=== PATIENT | female | born 1980 | race Asian ===

== ENCOUNTER 2022-04-22 10:54 | Observation (INO) | payer OTHER, SELFPAY ==
--- NOTE | 2022-04-22 11:23 | DI.US.S_ITS ---
PROCEDURE: US OB BIOPHYSICAL PROFILE INDICATIONS: Abdominal pain OUTSIDE/PRIOR DATING DATA: Last menstrual period (LMP): 09/07/2021. LMP-based estimated date of delivery (JULIANN): 06/07/2022. First dating scan (date and location): Not available. Estimated date of delivery (JULIANN) from first dating scan: N.A. TECHNIQUE: Real-time scanning was performed of the fetus, with image documentation and biometric measurements. Biophysical profile was also obtained. Endovaginal scanning: Performed. COMPARISON: None. FINDINGS: General: A single living intrauterine gestation is present. Presentation: Vertex. Placenta: Placental position is left fundal , without previa. Amniotic fluid index: 13.8 cm, normal range is 5-24 cm. Single deepest vertical pocket is 6.8 cm. heart rate: 141 beats per minute. Maternal cervical canal: 3.7 cm long. Normal lower limit is 2.5 cm. biometrics: Not performed. Clinical datin weeks 3 days Biophysical profile: Total point: 8 Tone: 2 points. Movement: 2 points. Respiration: 2 points. Largest pocket of fluid: 2 points. IMPRESSION: 1. A single living intrauterine gestation is present. 2. Normal biophysical profile. 3. Placenta is fundal without previa. No findings to suggest placental abruption. 4. CODEY 13.8 cm. We strive to produce accurate, complete, and clear reports of imaging services. To assist us in improving patient care, this report was composed using standard report templates and voice recognition software. Therefore, it may contain abnormal punctuation, insertions and/or omissions. Occasional wrong-word or sound-alike substitutions may occur. Though we review the report and make efforts to correct it, we do recommend that the report be read carefully in proper context to recognize any text inaccuracies. Dictated by: Latricia Bello M.D. on 04/22/2022 at 13:37 Approved by: Latricia Bello M.D. on 04/22/2022 at 13:43
[2022-04-22 12:01] LABS: Appearance Urine UA CLEAR; Bilirubin Urine UA NEGATIVE (NEGATIVE); Color Urine UA YELLOW; Glucose Urine UA TRACE g/dL (Negative); Ketones Urine UA NEGATIVE (NEGATIVE); Leukocyte Esterase Urine UA 1+ (NEGATIVE); Nitrite Urine UA NEGATIVE (Negative); Occult Blood Urine UA NEGATIVE (Negative); Protein Urine UA NEGATIVE (Negative); Urobilinogen Urine UA 0.2 E.U./dL (0.2)
[2022-04-22 12:05] LABS: Bacteria Urine None Seen; Culture Indicated Urine Cult Not Indicated; RBC Urine None Seen (0-5/HPF); Squamous Epithelial Cell Urine 5-10 /HPF (0-5/HPF); WBC Urine 1-5/HPF (0-5/HPF)
--- NOTE | 2022-04-22 13:42 | P.TNLD_ITS ---
Visit Information Visit Information Date of evaluation: 04/22/22 Primary OB Provider: Shabbir Buchanan Reason for Evaluation: Yes other Comments/Additional reasons for admission: Patient is a 41-year-old , JULIANN 06/14/[birth year]22 presenting at 32+ 3 weeks gestational age with some sharp left-sided lower abdominal pain. Patient received initial care and a what you at [facility] but has not been seen since February 16, 2022 due to PCS orders to [facility] to [facility] and a two month vacation to the [facility]. She is awaiting referral to [facility] for the balance of her care and delivery by repeat cesaranSashae presents today with a 24 hr. history of occasionally sharp and intense LLQ pain radiating down into the left groin. GI and ROS otherwise negative. No records available for review but patient has had two prior deliveries via . [facility] Medical History (Updated 04/29/22 @ 19:19 by Shante Márquez) Chicken pox (~1987) Headache (~1997) Migraine with aura Migraines (~1997) Surgical History (Updated 04/29/22 @ 19:19 by Shante Márquez) Anesthesia H/O section (~2015) Family History (Updated 04/30/22 @ 09:06 by Eufemia Landers RN) Grandfather Stroke Myocardial infarction Social History marital status: Exam [facility]ENCA Head: normal to inspection, normocephalic and atraumatic Eyes General: appearance normal, both eyes and all related structures Resp Effort & Inspection: normal respiratory effort and able to speak in complete sentences Auscultation: clear to auscultation bilaterally Cardio Rate: regular rate Rhythm: regular rhythm Heart Sounds: S1 normal, S2 normal and no murmurs GI Inspection: normal to inspection Palpation: soft and no hepatosplenomegaly Uterus Location (Fundal Height): 32 Other: Mild tenderness to direct palpation of left cornua and left lateral uterus. Fundus is soft and NT with very mild tightening corresponding to irritability noted on external monitoring. Extrem Right lower extremity: normal to inspection Objective Imaging OB Ultrasound: Radiologist's impression: COMPARISON:? None. ? FINDINGS:? ? General:? A single living intrauterine gestation is present.? Presentation:? Vertex.? Placenta:? Placental position is left fundal , without previa. Amniotic fluid index:? 13.8 cm, normal range is 5-24 cm.? Single deepest vertical pocket is 6.8 cm. heart rate:? 141 beats per minute.? Maternal cervical canal:? 3.7 cm long.? Normal lower limit is 2.5 cm.? ? biometrics:? Not performed. Clinical dating:? 32 weeks 3 days ? Biophysical profile:? Total point:? 8 Tone:? 2 points. Movement:? 2 points.? Respiration:? 2 points.? Largest pocket of fluid:? 2 points.? ? IMPRESSION:? ? 1. A single living intrauterine gestation is present. 2. Normal biophysical profile. 3. Placenta is fundal without previa.? No findings to suggest placental abruption. 4. CODEY 13.8 cm. Labs Labs: Laboratory Results - last 24 hr 04/22/22 11:24 Urine Color Yellow Urine Appearance Clear Urine pH 7.0 Ur Specific [place] 1.010 Urine Protein Negative Urine Glucose (UA) Trace H Urine Ketones Negative Urine Occult Blood Negative Urine Nitrate Negative Urine Bilirubin Negative Urine Urobilinogen 0.2 Ur Leukocyte Esterase 1+ H Urine RBC None seen Urine WBC 1-5/hpf Ur Squamous Epith Cells 5-10 /hpf H Urine Bacteria None seen Ur Culture Indicated? Cult not indicated Evaluation Evaluation Baseline heart rate: 130 Variability: Moderate (11-25) monitor accelerations: Present Monitor Decelerations: Absent Contraction Frequency (minutes): 10 Uterine Contraction Intensity: Mild Category of Tracing: Reactive Status: Category l Diagnosis, Plan/Disposition Final Diagnosis (1) : Status: Acute (2) History of delivery, currently : Status: Acute (3) LLQ discomfort: Status: Acute Plan/Disposition Plan: Patient will be fast-tracked for an initial OB visit 04/23/2022 with me at 11:30 AM. PTL precautions reviewed. Recommend decreased activity and increased hydration despite the fact that she and her are currently in the process of moving to [facility] from [place]. OB Disposition: home
== END 2022-04-22 13:39 | disposition home or self-care (01) ==
PROVIDERS: Admitting Provider Obstetrics & Gynecology; Referring Provider Obstetrics & Gynecology; Visit Provider Obstetrics & Gynecology
DX: O26.893 Other specified pregnancy related conditions, third trimester (principal); O34.219 Maternal care for unspecified type scar from previous cesarean delivery; R10.32 Left lower quadrant pain; Z3A.32 32 weeks gestation of pregnancy
CPT/HCPCS: 59025; 59050; 76817; 76819; 81001; G0378; G0379

== ENCOUNTER → 2022-04-25 10:01 | Outpatient (CLI) | payer OTHER, SELFPAY ==
[2022-04-25 14:04] LABS: Hematocrit 33.2 % (36-46); Hemoglobin 11.5 g/dL (12.0-16.0)
[2022-04-26 15:29] LABS: GTT (PREG) 1 Hour PP 50gm Dose 123 mg/dL (76-139)
== END ==
PROVIDERS: Referring Provider Obstetrics & Gynecology; Visit Provider Obstetrics & Gynecology
DX: Z34.83 Encounter for supervision of other normal pregnancy, third trimester (principal); Z3A.32 32 weeks gestation of pregnancy
CPT/HCPCS: 82950; 85014; 85018

== ENCOUNTER → 2022-05-22 17:00 | Outpatient (CLI) | payer OTHER, SELFPAY ==
[2022-05-23 14:23] LABS: Strep Grp B PCR NEG for Grp B Strep
== END ==
PROVIDERS: Visit Provider Obstetrics & Gynecology
DX: Z34.93 Encounter for supervision of normal pregnancy, unspecified, third trimester (principal); Z3A.36 36 weeks gestation of pregnancy
CPT/HCPCS: 87653

== ENCOUNTER 2022-06-05 09:38 | Inpatient (IN) | payer OTHER, SELFPAY ==
--- NOTE | 2022-06-05 | PATH_ITS ---
[facility] Accession Number: [id number] . 01 Material submitted: . fallopian tube - BILATERAL FALLOPIAN TUBES . 01 Diagnosis: Bilateral Fallopian Tubes, Tubal Ligation: Fallopian tubes x2 with benign paratubal cysts (up to 1 mm - 7 mm in greatest dimension); complete cross-sections; negative for atypia or malignancy. MRV 06/08/2022 1637 Local . 01 Electronically signed: . Jessica Sanchez MD, Pathologist NPI- [id number] . 01 Gross description: . Received in formalin, labeled with the patient's name and bilateral fallopian tubes, and consists of two unoriented fimbriated fallopian tubes measuring 11.6 x 0.9 cm and 8.1 x 0.8 cm, respectively. The longer fallopian tube has smooth, congested serosa with multiple small cystic structures measuring up to 0.1 cm in greatest dimension. Serial sectioning reveals a congested stellate lumen. The shorter fallopian tube has congested smooth serosa with a cystic structure near the fimbriated end measuring 0.7 cm in greatest dimension and filled with pascual serous fluid. Serial sectioning reveals a congested stellate lumen. Sections are submitted in include entire fimbriae and sales representative uniforms cross sections as follows: A1: Longer fallopian tube. A2: [employer] fallopian tube. ([id number]) /FRR 06/06/2022 1402 Local . 01 Pathologist provided ICD-10: Z30.2 . 01 CPT . 236833 Specimen Comment: A courtesy copy of this report has been sent to [phone] Performed at: 01 [facility] [address] [place] [address] [address], [place], [place] [id number] MD Aj Justice MD Phone: [phone]
[2022-06-05 10:39] LABS: Add Manual Diff / Slide Review NO; Basophils Absolute Auto 0 /uL (0-100); Basophils Percent Auto 0.3 % (0-2); Eosinophils Absolute Auto 100 /uL (0-450); Eosinophils Percent Auto 0.6 % (2-4); Hematocrit 38.5 % (36-46); Hemoglobin 13.3 g/dL (12.0-16.0); Lymphocytes Absolute Auto 1200 /uL (1100-4500); Mean Corpuscular HGB Conc 34.6 % (30-36); Mean Corpuscular Hemoglobin 32.1 PG (26-34); Mean Corpuscular Volume 92.7 fL (80-100); Monocytes Absolute Auto 600 /uL (0-900); Monocytes Percent Auto 6.4 % (3-14); Neutrophils Absolute Auto 7400 /uL (1500-7000); Neutrophils Percent Auto 79.7 % (50-75); Platelet Count 304 X10^3/uL (150-400); Red Blood Cell Count 4.15 X10^6/uL (4.0-5.2); Red Cell Distribution Width 13.7 % (11.6-14.8); White Blood Cell Count 9.3 X10^3/uL (4.5-11.0)
[2022-06-05 10:48] VITALS: BP 116/75
--- NOTE | 2022-06-05 10:59 | SUR.OPER ---
Supine on Padded OR bed, head on pillow, safety belt at thigh, arms secured on padded arm boards at <90 degrees abduction. Bump under right buttock. Legs uncrossed with pillow under knees, gel pad to heels, tape over blanket to lower legs.
--- NOTE | 2022-06-05 11:03 | P.HPOB_ITS ---
OB HPI Date/Time Date of admission: 06/05/22 Date Patient Seen: 06/05/22 Time Patient Seen: 11:03 History of Present Condition Chief complaint: OBS OF LABOR : 3 Para: 2 Estimated Date of Delivery: 06/14/22 Estimated Gestational Age (weeks): 38+5 Narrative: Leydi Hou is a 41 year old , JULIANN 06/10/2022, presents today with regular uterine contractions since 0400 this morning and spontaneous rupture membranes with clear fluid shortly after her admission to center. Patient has had 2 prior sections and is currently scheduled for repeat section next week. course has been unremarkable with late transfer from [place]. Placenta is posterior fundal on the left side and GBS is negative History of Present care: good care Dating criteria: LMP confirmed by 1st trimester US Ultrasounds: normal 1st trimester US and normal mid trimester US Obstetrical complications: none Medical complications: other (Advanced maternal age) Preadmission Labs Blood type: B (+) positive -: Antibody screen: negative, GBS status: negative, HBsAG: negative, HIV: negative and RPR/VDLR: negative -: Chlamydia screen: not detected and Gonorrhea screen: not detected -: Rubella: immune and Varicella: immune HCT: 38.5 HCAB: negative PAP: Normal Cell-free DNA: Negative 1 hr GTT: 123 Prior (ies) History: C/S x 2 Evaluation Evaluation Baseline heart rate: 150 Variability: Moderate (11-25) monitor accelerations: Present Monitor Decelerations: Absent Contraction Frequency (minutes): 3 Uterine Contraction Intensity: Moderate Category of Tracing: Reactive Status: Category l Dilation (cm): 3 Effacement (%): 80 Dilation: 3-4 cm Effacement: >/=80% station: -1 Position of cervix: mid Consistency: soft Mcclendon score: 10 Non-invasive Membranes Rupture Test: positive [facility] Medical History (Updated 05/31/22 @ 16:14 by Shabbir Buchanan MD) Chicken pox (~1987) Headache (~1997) Migraine with aura Migraines (~1997) Surgical History (Updated 04/29/22 @ 19:19 by Shante Márquez) Anesthesia H/O section (~2015) Family History (Updated 04/30/22 @ 09:06 by Eufemia Anshul, RN) Grandfather Stroke Myocardial infarction Social History marital status: number of children: 2 household members: spouse and children lives independently: Yes [facility]: [facility] pets and animals: No education level: college occupational status: unemployed current occupational exposures/hazards: No special erick needs: No travel history: recent ([facility] in March) seatbelt use: always water heater temp set < 120 deg: Yes working smoke detector in home: Yes fire extinguisher in home: Yes carbon monox detector in home: Yes firearms in home: No do you feel safe at home: Yes Smoking Status: Never smoker second hand exposure: Yes ( vapes) alcohol intake: former substance use type: does not use during the past year weight has: remained stable well-balanced diet: daily or most days daily servings fruits/ve-4 caffeine: Yes (1 cup coffee/day) Type(s) of exercise: walking and yoga frequency: 3-4 times per week Meds Home Medications and Allergies Home Medications Medication Instructions Recorded Confirmed Type diphenhydramine HCl 25 mg tablet 25 mg PO .COMPLEX PRN 04/24/22 05/29/22 History (Allergy (diphenhydramine)) prenat.vits,zeyad,kzr-vtvp-pvvbu 1 tab PO DAILY 04/24/22 05/29/22 History riboflavin (vitamin B2) 25 mg 25 mg PO DAILY 04/30/22 05/29/22 History tablet Allergies Allergy/AdvReac Type Severity Reaction Status Date / Time No Known Drug Allergies Allergy Unverified 05/29/22 15:59 Review of Systems Review of Systems Narrative: Problem-specific ROS positives included in HPI OB Exam [facility] Head: normal to inspection, normocephalic and atraumatic Eyes General: appearance normal, both eyes and all related structures Resp Effort & Inspection: normal respiratory effort and able to speak in complete sentences Auscultation: clear to auscultation bilaterally Cardio Rate: regular rate Rhythm: regular rhythm Heart Sounds: S1 normal, S2 normal and no murmurs Extremities Lower extremity: Yes normal to inspection GI Inspection: normal to inspection Palpation: Yes soft and Yes no hepatosplenomegaly Uterus Location (Fundal Height): 35 Presentation: vertex Estimated Weight (lbs): 6 Amniotic Fluid: clear Objective Labs Result Diagrams: 06/05/22 10:25 Labs: Laboratory Results - last 24 hr 06/05/22 10:25 WBC 9.3 RBC 4.15 Hgb 13.3 Hct 38.5 MCV 92.7 MCH 32.1 MCHC 34.6 RDW 13.7 Plt Count 304 Neut % (Auto) 79.7 H Lymph % (Auto) 13.0 L [place] % (Auto) 6.4 Eos % (Auto) 0.6 L Baso % (Auto) 0.3 Neut # (Auto) 7400 H Lymph # (Auto) 1200 [place] # (Auto) 600 Eos # (Auto) 100 Baso # (Auto) 0 Assessment and Plan Assessment and Plan Assessment and Plan narrative: ASSESSMENT 1. Intrauterine gestation, [place], vertex, 38+ 5 weeks gestational age 2. Prior section x2 3. Spontaneous rupture of membranes with uterine contractions PLAN 1. Admit for repeat section 2. Patient counseled regarding alternatives, risks, benefits, and potential complications associated with repeat section. With full understanding of the above, a written consent was executed, signed, and witnessed this date. 3. See admission orders Time Spent with Patient Total time spent with greater than 50% in coordination of care (as documented) at patient's floor/unit and/or counseling patient:: 15-24 minutes
--- NOTE | 2022-06-05 11:17 | PM.PREOP ---
Pre-operative Note COVID-19 COVID-19 status: Negative Result date/Date tested (Pos, Neg/Pending): 06/05/22 Criteria for continued procedure: Non-surgical alternatives not available or appropriate per current SOC Interval Note History & Physical reviewed/Exam performed by Physician: Yes Changes to H&P: No
[2022-06-05 11:27] LABS: COVID19 -Nasal RAPID Negative (Negative)
[2022-06-05] MEDS: LACTATED RINGERS 1,000 ML 100 ML IV ×2 (11:46→15:25)
[2022-06-05] MEDS: CEFAZOLIN 2 GM/100 ML PREMIX 100 ML IV (11:55)
--- NOTE | 2022-06-05 12:30 | SUR.OPER ---
VIABLE FEMALE INFANT DELIVERED AT 1221. CORD BLOOD AND PLACENTA TO OB WITH RN
[2022-06-05 13:22] VITALS: BP 101/57; PULSE 87; RESP 17; TEMP 36.1; O2SAT 100
--- NOTE | 2022-06-05 13:22 | PM.OBCS.1 ---
Operative Date/Time/Diagnoses Date of procedure: 06/05/22 Time of procedure: 12:00 Pre-op diagnosis: Intrauterine gestation, [place], 38+5 weeks EGA Spontaneous rupture of membranes Prior section x 2 Advanced maternal age Request for sterilization Post-op diagnosis: same Procedure & Clinicians Procedure: Repeat section, low transverse cervical Bilateral salpingectomy Same procedure as scheduled: Yes Indications: Leydi is a 41-year-old presenting today at 38+ 5 weeks gestational age with spontaneous rupture membranes and contractions since 0400 on the morning of admission. She has had 2 prior sections and is scheduled for repeat section next week. In addition the patient has expressed a desire for permanent sterilization by way of bilateral salpingectomy at the time of her . She understands that such procedures 1 that will result in her permanently and irreversibly being unable to bear children without the benefit of assisted reproductive technology. In addition she understands that there was a very small chance (1-11/999) that a bilateral salpingectomy will fail to prevent conception and that should conception occur, the chances for ectopic gestation or significant. Surgeon: Shabbir Buchanan Click Yes if Unassisted: No Industrial Roof Plumber: Libertad Padilla Reason for Industrial Roof Plumber: Industrial Roof Plumber required for the safe, effective, and timely completion of this surgery. Anesthesia Type: Spinal Operative Notes Findings: Viable [] BW [], Apgars []/[], delivered from the [] presentation. Normal gravid anatomy. Closure Type: primary Specimen(s): cord blood Intraoperative meds administered: Ketorolac and Pitocin Applied: Catheter Estimated Blood Loss (mL): 700 Blood products transfused: none Procedure in detail: With her informed written consent, the patient was taken to the operating room and placed in the supine position for a repeat section procedure, for the indication(s) above. The abdomen was prepped and draped in the usual manner for section and a pre-surgical timeout was taken per [facility] OR protocol. Once effective anesthesia was confirmed, a 15 cm transverse Pfannenstiel incision was made in the skin and taken down through the subcutaneous tissues to the deep fascia. The deep fascia was incised transversely, the rectus abdominal eyes bluntly and sharply, and the peritoneal cavity entered without difficulty. The lower uterine segment was visualized and the position/presentation palpated. A transverse incision at or above the vesicouterine reflection was made with Metzenbaum scissors and transverse hysterotomy performed near the midline. Amniotomy revealed a small amount of clear fluid. The incision was extended bilaterally with digital traction and the was delivered without difficulty from the vertex presentation. The infant was vigorous and cord clamping delayed for 60 seconds. The placenta was delivered intact using gentle cord traction and fundal massage.The uterine cavity was then cleared of any clot/debris first with a sloppy wet lap tape followed by a dry lap tape. Ring forceps were then applied to the angles and the midline of the incised VARINDER. A primary closure of the uterus was then accomplished with #1 CCGS in a running interlocking stitch followed by a 2nd layer of #1 CCGS in a running interlocking imbricating stitch. One additional jrgcop-ow-xpcyl suture was required to achieve complete hemostasis. Attention was then turned to performance of the bilateral salpingectomy. The distal tube on the left was grasped with a Mclean clamp and using a handheld LigaSure device, the fimbria ovarica was coagulated and divided followed by coagulation and division of the mesosalpinx all the way to the cornua at which point the proximal fallopian tube was coagulated and divided with LigaSure device. The distal tube on the right was then grasped with a Mclean clamp and using a handheld LigaSure device, the fimbria ovarica was coagulated and divided followed by coagulation and division of the mesosalpinx all the way to the cornua on the right at which point the proximal fallopian tube was coagulated and divided with the LigaSure device. The fallopian tubes were submitted as aggregate pathologic specimens for histologic evaluation. Once pelvic hemostasis was assured, the bladder flap was closed with 2-0 Vicryl in a running stitch and the anterior peritoneum was closed with a running 2-0 Vicryl suture. The fascia was then closed with #1 Vicryl in a running stitch initiated at both angles and tying separately near the midline. The subcutaneous tissues were reapproximated with 2-0 plain catgut suture using inverted interrupted stitches. The skin edges were then brought together with 4-0 Monocryl in a subcuticular closure and the incision was reinforced with half-inch Steri-Strips. An appropriate compression dressing was applied and the patient transferred to PACU for recovery and subsequent transfer to the Center for recuperation. Complications: none [place] Baby 1: Infant Gender: Female Presentation: vertex Position: Left Occiput Anterior Placental Delivery Description: Spontaneous and Expressed Cord Vessel Description: 3 Vessels score (1 min): 9 score (5 min): 9 weight: 6 lb 15.818 oz Post-operative Condition: stable Disposition: PACU Aftercare: routine postop
[2022-06-05 13:26] VITALS: BP 103/70; PULSE 73; RESP 18; TEMP 35.8; O2SAT 100
[2022-06-05 13:32] VITALS: BP 104/68; PULSE 89; RESP 19; TEMP 36.4; O2SAT 99
[2022-06-05 15:26] VITALS: TEMP 35.9
[2022-06-05] MEDS: OXYCODONE IR 5 MG TABLET PO (15:26)
[2022-06-05] MEDS: ONDANSETRON 4 MG/2 ML INJ IV (16:57)
[2022-06-05] MEDS: KETOROLAC 30 MG/ML VIAL IV (19:10)
[2022-06-05] MEDS: METOCLOPRAMIDE 10 MG/2 ML INJ IV (20:40)
[2022-06-06] MEDS: ACETAMINOPHEN 325 MG TABLET 650 MG PO ×2 (05:46→13:33)
[2022-06-06 06:05] LABS: Add Manual Diff / Slide Review NO; Basophils Absolute Auto 0 /uL (0-100); Basophils Percent Auto 0.4 % (0-2); Eosinophils Absolute Auto 100 /uL (0-450); Eosinophils Percent Auto 0.9 % (2-4); Hematocrit 32.1 % (36-46); Hemoglobin 11.2 g/dL (12.0-16.0); Lymphocytes Absolute Auto 900 /uL (1100-4500); Lymphocytes Percent Auto 11.3 % (25-40); Mean Corpuscular HGB Conc 34.9 % (30-36); Mean Corpuscular Hemoglobin 32.2 PG (26-34); Mean Corpuscular Volume 92.5 fL (80-100); Monocytes Absolute Auto 500 /uL (0-900); Monocytes Percent Auto 5.9 % (3-14); Neutrophils Absolute Auto 6400 /uL (1500-7000); Neutrophils Percent Auto 81.5 % (50-75); Platelet Count 268 X10^3/uL (150-400); Red Blood Cell Count 3.47 X10^6/uL (4.0-5.2); Red Cell Distribution Width 13.6 % (11.6-14.8); White Blood Cell Count 7.9 X10^3/uL (4.5-11.0)
--- NOTE | 2022-06-06 07:46 | P.PNOB_ITS ---
Subjective - OB Subjective Patient comments: pain well controlled [place] baby status: doing well feeding status: exclusively breast feeding Narrative: Patient experienced significant N&V overnight but that's resolved with discontinuation of Toradol and Oxycodone in favor of PO Tylenol. + flatus. Minimal lochia. Date Patient Seen: 06/06/22 Time Patient Seen: 07:46 Exam Vital Signs (past 8 hours): Oxygen Delivery Method Room Air Oxygen Flow Rate 0 Const General: cooperative and comfortable Nutritional Appearance: average body habitus Orientation: alert and oriented x3 HENMT Head: normal to inspection, atraumatic and abrasion Ears: hearing grossly normal bilaterally Face and sinus: face symmetric Eyes General: appearance normal, both eyes and all related structures Conjunctivae: conjunctivae normal Sclera: sclerae normal EOM: EOM intact bilaterally Neck Neck: normal visual inspection Resp Effort & Inspection: normal respiratory effort and able to speak in complete sentences Auscultation: clear to auscultation bilaterally Cardio Rate: regular rate Rhythm: regular rhythm Heart Sounds: S1 normal, S2 normal and no murmurs GI Inspection: normal to inspection and incision (Surgical dressing clean and dry) Palpation: soft, no hepatosplenomegaly, mass (Firm, mildly tender fundus U-2) and tender (Mild, diffuse postsurgical tenderness) External Female Exam: other (No significant bleeding noted) Extrem General: no calf tenderness Psych Appearance: grossly normal Mental Status: mental status grossly normal Speech and Movement: speech and movement normal Mood: congruent mood Affect: normal affect Attitude: cooperative Thought Process: normal Thought Content: normal Judgment: judgment good Objective Labs Result Diagrams: 06/06/22 05:59 Labs: Laboratory Results - last 24 hr 06/05/22 06/05/22 06/05/22 10:25 10:25 10:25 WBC 9.3 RBC 4.15 Hgb 13.3 Hct 38.5 MCV 92.7 MCH 32.1 MCHC 34.6 RDW 13.7 Plt Count 304 Neut % (Auto) 79.7 H Lymph % (Auto) 13.0 L [place] % (Auto) 6.4 Eos % (Auto) 0.6 L Baso % (Auto) 0.3 Neut # (Auto) 7400 H Lymph # (Auto) 1200 [place] # (Auto) 600 Eos # (Auto) 100 Baso # (Auto) 0 SARS-CoV-2 (PCR) Negative Blood Type B Positive Antibody Screen Negative 06/06/22 05:59 WBC 7.9 RBC 3.47 L Hgb 11.2 L Hct 32.1 L MCV 92.5 MCH 32.2 MCHC 34.9 RDW 13.6 Plt Count 268 Neut % (Auto) 81.5 H Lymph % (Auto) 11.3 L [place] % (Auto) 5.9 Eos % (Auto) 0.9 L Baso % (Auto) 0.4 Neut # (Auto) 6400 Lymph # (Auto) 900 L [place] # (Auto) 500 Eos # (Auto) 100 Baso # (Auto) 0 SARS-CoV-2 (PCR) Blood Type Antibody Screen Assessment & Plan Plan day: 1 plan OB: routine postop care Comments: Possible discharge later today. Time Spent With Patient Time: Total time spent is greater than 50% in coordination of care (as documented) at patient's floor/unit and/or counseling patient: Time with patient: less than 15 minutes
[2022-06-06] MEDS: DOCUSATE 100 MG CAPSULE 200 MG PO (08:59)
[2022-06-06] MEDS: IBUPROFEN 600 MG TABLET PO ×2 (09:00→14:55)
[2022-06-06 15:50] VITALS: TEMP 36.6
--- NOTE | 2022-06-06 17:17 | P.DS_ITS ---
Discharge Providers Provider Date of admission: 06/05/22 09:38 Discharge Date: 06/06/22 Primary care physician: Steve LIU Provider Consults: 06/05/22 14:37 Consult to Computer Repairer Routine Comment: Discharge provider: Shabbir Buchanan MD Summary Hospital Course Date Patient Seen: 06/06/22 Time Patient Seen: 17:17 Diagnoses: Intrauterine gestation, [place], 38+ 5 weeks gestational age, delivered by repeat section Prior section x2 Request for sterilization Advanced maternal age Hospital Course: Leydi presented on the morning of 06/05/2022 with regular uterine contractions and spontaneous rupture membranes. Although she was scheduled for repeat section next week, she was taken instead to the operating room mid day on 06/05/2022 and underwent an uneventful repeat section with bilateral salpingectomy. Details of the procedure are well summarized on my operative note of that date. Following surgery the patient has done extremely well with prompt return of bowel and bladder function, she is ambulating independently, tolerating regular diet, and her pain is well controlled with oral medications. She will be discharged at this time to home in an afebrile normotensive condition after counseling regarding precautionary symptoms, limitations of activity, medications, and plans for follow-up be in 1 week for an incision check. Medications at discharge will include vitamins 1 p.o. q.d., ibuprofen 600 mg p.o. q.6 hours as needed pain, Colace 200 mg p.o. q.d., and hydromorphone 2 mg tabs, 1 p.o. Q 4-6 hours as needed for pain dispensed 20. Peripartum Data Infant Delivery Method: Section Laceration Description: None Episiotomy description: None complications: none 1: Gender: Female Disposition of : home Status at Discharge Cognitive/behavioral status at discharge: oriented Functional status at discharge: independent ambulation Overall status at discharge: patient is progressing back to baseline Time Spent with Patient Time attestation: Total time spent providing and/or coordinating discharge services: Time spent: Less than 30 minutes Objective Labs Result Diagrams: 06/06/22 05:59 Labs: Laboratory Results - last 24 hr 06/06/22 05:59 WBC 7.9 RBC 3.47 L Hgb 11.2 L Hct 32.1 L MCV 92.5 MCH 32.2 MCHC 34.9 RDW 13.6 Plt Count 268 Neut % (Auto) 81.5 H Lymph % (Auto) 11.3 L [place] % (Auto) 5.9 Eos % (Auto) 0.9 L Baso % (Auto) 0.4 Neut # (Auto) 6400 Lymph # (Auto) 900 L [place] # (Auto) 500 Eos # (Auto) 100 Baso # (Auto) 0 Exam Vital Signs (past 8 hours): - 06/06/22 15:50 Temperature 97.8 F Oxygen Delivery Method Room Air Oxygen Flow Rate 0 Const General: cooperative and comfortable Nutritional Appearance: average body habitus Orientation: alert and oriented x3 HENMT Head: normal to inspection, atraumatic and abrasion Ears: hearing grossly normal bilaterally Face and sinus: face symmetric Eyes General: appearance normal, both eyes and all related structures Conjunctivae: conjunctivae normal Sclera: sclerae normal EOM: EOM intact bilaterally Neck Neck: normal visual inspection Resp Effort & Inspection: normal respiratory effort and able to speak in complete sentences Auscultation: clear to auscultation bilaterally Cardio Rate: regular rate Rhythm: regular rhythm Heart Sounds: S1 normal, S2 normal and no murmurs GI Inspection: normal to inspection and incision (Wound clean and dry; AquaCel applied) Palpation: soft, no hepatosplenomegaly, mass (Firm, NT U-2 fundus) and tender (Mild, diffuse postsurgical tenderness) Auscultation: normoactive bowel sounds External Female Exam: other (No significant bleeding noted) Extrem General: no calf tenderness Psych Appearance: grossly normal Mental Status: mental status grossly normal Speech and Movement: speech and movement normal Mood: congruent mood Affect: normal affect Attitude: cooperative Thought Process: normal Thought Content: normal Judgment: judgment good Discharge Plan Discharge Plan Patient Disposition: Home Provider Discharge Comment: Please review the written instructions you received when you were discharged from the hospital. Your 1 week follow-up appointment will need to be scheduled with the office and I look forward to seeing you then. If however in the meanwhile, you have any issues, concerns, or problems, please contact me either through the office phone at [phone] or via the patient portal. Discharge orders & Medications Prescriptions: New docusate sodium 100 mg Capsule 200 mg PO DAILY Qty: 30 2RF ibuprofen 600 mg Tablet 600 mg PO Q6HR PRN (Reason: Fever/Mild Pain (1-3)) Qty: 60 2RF hydromorphone 2 mg tablet 2 mg PO Q4-6H PRN (Reason: pain) Qty: 20 0RF Continued riboflavin (vitamin B2) 25 mg tablet 25 mg PO DAILY diphenhydramine HCl [Allergy (diphenhydramine)] 25 mg tablet 25 mg PO .COMPLEX MDD 2 PRN (Reason: Sleep) Rx Instructions: 25 mg orally as directed for migraines PRN; prenat.vits,zeyad,yrs-pyng-jivth Tablet 1 tab PO DAILY Follow up/Referrals: ProviderSteve [Primary Care Provider] - Discharge Health Status Multidrug resistant organism: No MDRO Diet/Activity/Treatments Diet: Diet as Tolerated Activity: As tolerated Other treatments: Tylenol may be used in addition to ibuprofen/hydromorphone for additional pain relief Skin/Wound/Dressing Care Report to your healthcare provider any signs of infection, such as:: chills, fever, increased pain, unusual drainage and unusual redness Visit Report/Discharge Packet Instructions: DI for , Linked to Reduced Risk of Heart Disease Later in Life, DI for Prescription Opioid Use Discharge Data Primary Care Provider: Steve Dan
[2022-06-06 17:20] VITALS: BP 104/68; PULSE 89; RESP 19; TEMP 36.6
== END 2022-06-06 17:20 | disposition home or self-care (01) | DRG 785 ==
PROVIDERS: Specialist; Admitting Provider Obstetrics & Gynecology; Referring Provider Obstetrics & Gynecology; Visit Provider Obstetrics & Gynecology
PROC: 10D00Z1 Extraction of Products of Conception, Low, Open Approach (ICD-10-PCS; CPT 59514; principal; 2022-06-05 11:15)
DX: O34.211 Maternal care for low transverse scar from previous cesarean delivery (principal); O75.82 Onset (spontaneous) of labor after 37 completed weeks of gestation but before 39 completed weeks gestation, with delivery by (planned) cesarean section; O42.02 Full-term premature rupture of membranes, onset of labor within 24 hours of rupture; Z3A.38 38 weeks gestation of pregnancy; Z37.0 Single live birth; Z30.2 Encounter for sterilization; Z20.822 Contact with and (suspected) exposure to COVID-19; O99.892 Other specified diseases and conditions complicating childbirth; N83.8 Other noninflammatory disorders of ovary, fallopian tube and broad ligament
CPT/HCPCS: 36415; 58611; 59025; 59050; 59514; 59515; 84112; 85025; 86850; 86900; 86901; 87635; C9803; G0379; J0690; J1885; J2274; J2405; J2590; J2765

== ENCOUNTER → 2022-06-15 15:57 | Outpatient (CLI) | payer OTHER, SELFPAY ==
--- NOTE | 2022-06-15 15:59 | DI.US.S_ITS ---
PROCEDURE: US ABDOMEN LIMITED INDICATIONS: r/o hematoma/abscess from c section TECHNIQUE: Real-time scanning was performed of the scar area, with image documentation. COMPARISON: None. FINDINGS: No fluid collections or mass lesions. IMPRESSION: No visualized hematoma. Dictated by: Iliana Gaston M.D. on 06/15/2022 at 21:30 Approved by: Iliana Gaston M.D. on 06/15/2022 at 21:31
[2022-06-15 17:24] LABS: Add Manual Diff / Slide Review NO; Basophils Absolute Auto 100 /uL (0-100); Eosinophils Absolute Auto 100 /uL (0-450); Eosinophils Percent Auto 2.4 % (2-4); Hematocrit 35.2 % (36-46); Hemoglobin 12.5 g/dL (12.0-16.0); Lymphocytes Absolute Auto 1400 /uL (1100-4500); Lymphocytes Percent Auto 22.6 % (25-40); Mean Corpuscular HGB Conc 35.5 % (30-36); Mean Corpuscular Hemoglobin 33.1 PG (26-34); Mean Corpuscular Volume 93.2 fL (80-100); Monocytes Absolute Auto 600 /uL (0-900); Monocytes Percent Auto 9.6 % (3-14); Neutrophils Absolute Auto 3900 /uL (1500-7000); Neutrophils Percent Auto 64.4 % (50-75); Platelet Count 539 X10^3/uL (150-400); Red Blood Cell Count 3.77 X10^6/uL (4.0-5.2); Red Cell Distribution Width 13.5 % (11.6-14.8); White Blood Cell Count 6.1 X10^3/uL (4.5-11.0)
== END ==
PROVIDERS: Referring Provider Obstetrics & Gynecology; Visit Provider Obstetrics & Gynecology
DX: R10.2 Pelvic and perineal pain (principal); Z98.891 History of uterine scar from previous surgery
CPT/HCPCS: 36415; 76705; 85025